=== PATIENT | female | born 1995 | race Caucasian/White ===

== ENCOUNTER 2021-04-24 | Emergency (ER) | payer BC ==
[2021-04-24 00:09] VITALS: BP 108/68; PULSE 81; TEMP 99.1; BMI 20.8
[2021-04-24] MEDS ORDERED: KETOROLAC TROMETHAMINE 60 MG/2 ML VIAL IM ONE (01:07)
[2021-04-24] MEDS ORDERED: KETOROLAC TROMETHAMINE 30 MG/1 ML VIAL ONE (01:08)
== END 2021-04-24 01:23 | disposition home or self-care (01) ==
LOC: FER
PROC: 3E0233Z Introduction of Anti-inflammatory into Muscle, Percutaneous Approach (ICD-10-PCS; principal; 2021-04-24)
DX: M94.0 Chondrocostal junction syndrome [Tietze] (principal)
CPT/HCPCS: 99284-25